=== PATIENT | female | born 1980 | race Caucasian/White ===

== ENCOUNTER 2022-07-02 00:02 | Inpatient (IN) | payer BC ==
[~2022-07-02] VITALS: Ht 172.7 cm; Wt 100.0 kg
[2022-07-02 00:42] LABS: BASOPHILS % (AUTO) 0.2 % (0-1); EOSINOPHILS % (AUTO) 0.1 % (0-6); HEMATOCRIT 44.8 % (35.0-45.0); HEMOGLOBIN 15.6 g/dl (12.0-16.0); LYMPHOCYTES # (AUTO) 1.2 X10'3 (1.1-4.8); LYMPHOCYTES % (AUTO) 7.4 % (21-51); MEAN CORPUSCULAR HEMOGLOBIN 33.2 PG (27.0-31.0); MEAN CORPUSCULAR HGB CONC 34.8 g/dL (33.0-36.5); MEAN CORPUSCULAR VOLUME 95.3 FL (78-98); MEAN PLATELET VOLUME 8.6 FL (7.4-10.4); MONOCYTES # (AUTO) 0.5 X10'3 (0-0.9); MONOCYTES % (AUTO) 2.8 % (2-12); NEUTROPHILS % (AUTO) 89.5 % (42-75); PLATELET COUNT 219 X10'3 (140-440); WHITE BLOOD COUNT 16.8 X10'3 (4.5-11.0)
[2022-07-02] MEDS ORDERED: normal saline 1000ML IV soln IV ONE (00:50)
[2022-07-02] MEDS ORDERED: ondansetron/PF 4mg/2ml inj IV ONE (00:50)
[2022-07-02] MEDS ORDERED: CefTRIAXone 2gm/D5W 50ml BAG 50 ML IV ONE (00:50)
[2022-07-02] MEDS ORDERED: morphine 4 MG/ML inj SYRINge IV ONE ×2 (00:50→01:45)
[2022-07-02 00:54] LABS: ALANINE AMINOTRANSFERASE 40 U/L (12-78); ALBUMIN 3.7 G/DL (3.4-5.0); ALKALINE PHOSPHATASE 125 IU/L (46-116); ANION GAP 13 (8-16); ASPARTATE AMINO TRANSFERASE 35 U/L (10-37); BILIRUBIN,TOTAL 1.2 MG/DL (0.1-1.0); BLOOD UREA NITROGEN 11 MG/DL (7-18); BUN/CREATININE RATIO 15.1 (10.0-20.0); CALCIUM 8.8 MG/DL (8.5-10.1); CHLORIDE 98 MMOL/L (99-107); CREATININE 0.73 MG/DL (0.40-0.90); GLUCOSE 136 MG/DL (70-104); POTASSIUM 3.1 MMOL/L (3.5-5.1); SODIUM 136 MMOL/L (135-145); TOTAL CARBON DIOXIDE 24.9 MMOL/L (24-32); TOTAL PROTEIN 7.5 G/DL (6.4-8.2); eGFR 87 ML/MIN
[2022-07-02 01:10] LABS: LIPASE 3046 U/L (73-393)
--- NOTE | 2022-07-02 01:26 | NUR ---
Patient continues to vomit after getting Zofran, Per Dr. Blackwood given Reglan 10mg IV now.
[2022-07-02] MEDS ORDERED: metoclopramide 5 mg/ml inj IV ONE (01:30)
[2022-07-02] MEDS ORDERED: diphenhydrAMINE 50 mg/ml inj IV ONE (01:45)
[2022-07-02] MEDS ORDERED: normal saline 1000ml 1,000 ML IV ONE (01:45)
[2022-07-02] MEDS ORDERED: fentaNYL/PF 50MCG/1 ML 2ML syringe IV ONE (02:30)
[2022-07-02] MEDS ORDERED: morphine 2 MG/ML inj. syringe IV PRN (03:00)
[2022-07-02] MEDS ORDERED: magnesium 4gm in 100ml NS 100 ML IV PRN (03:00)
[2022-07-02] MEDS ORDERED: ondansetron 4mg rapidly disintigrating tab PO PRN (03:00)
[2022-07-02] MEDS ORDERED: mag hydrox/Alum hydrox/simeth 30ml oral suspension PO PRN (03:00)
[2022-07-02] MEDS ORDERED: diphenhydrAMINE 25mg capsule PO PRN (03:00)
[2022-07-02] MEDS ORDERED: diphenhydrAMINE 50 mg/ml inj IV PRN (03:00)
[2022-07-02] MEDS ORDERED: potassium Cl 20 mEq SR tablet PO PRN (03:00)
[2022-07-02] MEDS ORDERED: metoclopramide 5 mg/ml inj IV PRN (03:00)
[2022-07-02] MEDS ORDERED: magnesium hydroxide 30ml (MOM) UD suspension PO PRN (03:00)
[2022-07-02] MEDS ORDERED: ondansetron/PF 4mg/2ml inj IV PRN (03:00)
[2022-07-02] MEDS ORDERED: acetaminophen 650mg rectal suppository RC PRN (03:00)
[2022-07-02] MEDS ORDERED: magnesium Cl slow-release 64mg tablet PO PRN (03:00)
[2022-07-02] MEDS ORDERED: acetaminophen 325mg tablet PO PRN ×2 (03:00)
[2022-07-02] MEDS ORDERED: potassium Cl 40MEQ/1/2NS 520ml 520 ML IV PRN (03:00)
[2022-07-02] MEDS ORDERED: bisacodyl 10mg suppository rectal RC PRN (03:00)
[2022-07-02] MEDS ORDERED: HYDROcodone/acetaminophen 5mg/325mg tablet PO PRN (03:00)
[2022-07-02] MEDS ORDERED: HYDROmorphone inj. 0.5 MG/0.5 ML DISP.SYRIN IV PRN (03:00)
[2022-07-02] MEDS ORDERED: magnesium 2GM in 50ml NS 50 ML IV PRN (03:00)
[2022-07-02] MEDS ORDERED: HYDROcodone/acetaminophen 10/325mg tab PO PRN (03:00)
[2022-07-02] MEDS ORDERED: HYDROmorphone 1 mg/ml syringe IV ONE (03:30)
[2022-07-02 03:32] LABS: HEMOGLOBIN A1C 5.7 % (4.5-6.2)
[2022-07-02] MEDS: hydrALAZINE 20mg/ml inj. IV SCH ×4 (03:37→20:18)
[2022-07-02] MEDS: potassium Cl 20mEq in NS 1,000 ML IV SCH ×2 (03:40→14:02)
[2022-07-02 03:45] LABS: CREATINE KINASE 40 U/L (26-192); MAGNESIUM 1.4 MG/DL (1.5-2.4); PHOSPHORUS 3.8 MG/DL (2.3-4.5)
[2022-07-02] MEDS ORDERED: PHEN-887 PO (03:51)
[2022-07-02] MEDS ORDERED: NITR100C11 PO (03:51)
[2022-07-02] MEDS ORDERED: magnesium 2GM in 50ml NS 50 ML IV ONE (04:15)
[2022-07-02] MEDS ORDERED: potassium Cl 40MEQ/1/2NS 520ml 520 ML IV ONE ×4 (04:15→18:30)
[2022-07-02 05:13] LABS: URINE HCG NEGATIVE (NEG)
[2022-07-02 05:17] LABS: CLARITY,URINE CLEAR (Clear); COLOR,URINE ORANGE (Yellow)
[2022-07-02 05:32] LABS: UA COLLECTION TYPE VOIDED
[2022-07-02 05:34] LABS: URINE AMPHETAMINE SCREEN NEGATIVE (Neg); URINE BARBITUATE SCREEN NEGATIVE (Neg); URINE BENZODIAZEPINES SCREEN NEGATIVE (Neg); URINE CANNABINOID SCREEN NEGATIVE (Neg); URINE COCAINE SCREEN NEGATIVE (Neg); URINE METHADONE SCREEN NEGATIVE (Neg); URINE OPIATE SCREEN POSITIVE (Neg); URINE PHENCYCLIDINE SCREEN NEGATIVE (Neg)
[2022-07-02 05:36] LABS: BACTERIA,URINE FEW /HPF (Neg); MUCUS STRANDS NONE SEEN /LPF (Neg); RBC,URINE NONE SEEN /HPF (0-2); SQUAMOUS EPITHELIAL CELL,UR FEW /LPF (FEW); WBC CLUMPS,URINE FEW /HPF (NEGATIVE); WBC,URINE 30-50 /HPF (0-4)
[2022-07-02 05:49] VITALS: BP 175/90
[2022-07-02] MEDS: morphine 2 MG/ML inj. syringe IV PRN ×3 (05:58→10:40)
[2022-07-02 06:00] VITALS: BP 148/78
--- NOTE | 2022-07-02 07:15 | NUR ---
Patient in room PCU 3020. I have received report from MARISELA Lester and had the opportunity to ask questions and assume patient care.
[2022-07-02 07:21] LABS: POTASSIUM 2.9 MMOL/L (3.5-5.1)
--- NOTE | 2022-07-02 07:21 | NUR ---
CRITICAL LAB VALUE TAKEN FROM LAB, REPORTED TO PRIMARY DERMATOLOGY SALES REPRESENTATIVE.
--- NOTE | 2022-07-02 07:29 | NUR ---
PAGER ID: [phone] MESSAGE: Eb Brown [id number]. K 2.9. Replacement already ordered. Thank you, Shima [id number]
[2022-07-02] MEDS ORDERED: ESCI5TAB PO (07:34)
[2022-07-02 07:39] LABS: APTT 27 SECONDS (22-32)
[2022-07-02] MEDS: pantoprazole 40MG/NS 100ML BAG 100 ML IV SCH (07:56)
[2022-07-02] MEDS ORDERED: docusate sod 100mg capsule PO SCH (08:00)
[2022-07-02] MEDS: K and/or MAG REPLACEMENT MC SCH ×2 (08:31→20:00)
[2022-07-02] MEDS: heparin, porcine 5000 units/ml vial SQ SCH ×2 (08:47→20:21)
[2022-07-02 10:00] VITALS: BP_SYST 153; BP_SYST 168; BP_DIAS 92; BP_DIAS 94
[2022-07-02] MEDS ORDERED: morphine 2 MG/ML inj. syringe IV ONE (12:00)
--- NOTE | 2022-07-02 13:03 | NUR ---
PAGER ID: [phone] MESSAGE: Eb Brown [id number]. Patient still reporting 10/10 pain and requesting Dilaudid. Patient also stating she is starting to withdrawl from alcohol and requesting something for anxiety. Please advise, Thank you, Shima [id number].
[2022-07-02] MEDS ORDERED: HYDROmorphone 2mg tablet PO PRN (13:10)
[2022-07-02] MEDS ORDERED: haloperidol lactate 5mg/ml inj IM PRN (13:15)
[2022-07-02 14:00] VITALS: BP 167/89
[2022-07-02] MEDS: HYDROmorphone 1 mg/ml syringe IV PRN ×2 (14:02→20:13)
[2022-07-02 15:08] LABS: BASOPHILS % (AUTO) 0.2 % (0-1); EOSINOPHILS % (AUTO) 0 % (0-6); HEMATOCRIT 41.7 % (35.0-45.0); HEMOGLOBIN 14.4 g/dl (12.0-16.0); LYMPHOCYTES # (AUTO) 0.8 X10'3 (1.1-4.8); LYMPHOCYTES % (AUTO) 4.9 % (21-51); MEAN CORPUSCULAR HEMOGLOBIN 33.1 PG (27.0-31.0); MEAN CORPUSCULAR HGB CONC 34.5 g/dL (33.0-36.5); MEAN PLATELET VOLUME 8.4 FL (7.4-10.4); MONOCYTES # (AUTO) 0.6 X10'3 (0-0.9); MONOCYTES % (AUTO) 3.5 % (2-12); NEUTROPHILS # (AUTO) 15.5 X10'3 (1.8-7.7); NEUTROPHILS % (AUTO) 91.4 % (42-75); PLATELET COUNT 206 X10'3 (140-440); RED BLOOD COUNT 4.34 X10'6 (4.20-5.60); RED CELL DISTRIBUTION WIDTH 14.4 % (11.5-14.5)
--- NOTE | 2022-07-02 15:20 | NUR ---
Met with patient in regards to alcohol use and to see if patient was interested in resources for treatment options. Patient is interested in resources. Patient would like to start medication to help with cravings. I gave patient a card for [facility] and my card to call me with any questions.
[2022-07-02 15:28] LABS: ALANINE AMINOTRANSFERASE 33 U/L (12-78); ALBUMIN 3.3 G/DL (3.4-5.0); ALBUMIN/GLOBULIN RATIO 0.9 (1.1-1.5); ALKALINE PHOSPHATASE 107 IU/L (46-116); ANION GAP 14 (8-16); ASPARTATE AMINO TRANSFERASE 26 U/L (10-37); BILIRUBIN,TOTAL 0.8 MG/DL (0.1-1.0); BLOOD UREA NITROGEN 11 MG/DL (7-18); BUN/CREATININE RATIO 16.2 (10.0-20.0); CALCIUM 8.3 MG/DL (8.5-10.1); CHLORIDE 100 MMOL/L (99-107); CREATININE 0.68 MG/DL (0.40-0.90); GLUCOSE 133 MG/DL (70-104); POTASSIUM 3.4 MMOL/L (3.5-5.1); SODIUM 137 MMOL/L (135-145); TOTAL CARBON DIOXIDE 22.9 MMOL/L (24-32); TOTAL PROTEIN 6.8 G/DL (6.4-8.2); eGFR > 90 ML/MIN
[2022-07-02] MEDS: LORazepam 2 mg/ml vial IV PRN ×2 (15:59→20:16)
--- NOTE | 2022-07-02 17:27 | NUR ---
I agree with WARP PREPARER assessment except noted changes.
[2022-07-02 18:00] VITALS: BP 159/86
--- NOTE | 2022-07-02 18:11 | NUR ---
Problems reprioritized. Patient report given, questions answered & plan of care reviewed with MARISELA Lester.
[2022-07-02] MEDS: atenolol 25mg tablet PO SCH (19:15)
[2022-07-02] MEDS: lisinopril 5mg tablet PO SCH (19:15)
[2022-07-02] MEDS: thiamine 100mg/ml 2ml inj. IV SCH (20:33)
[2022-07-02] MEDS ORDERED: temazepam 15mg capsule PO PRN (21:00)
[2022-07-02 21:11] VITALS: BP 148/82
[2022-07-03] MEDS: LORazepam 2 mg/ml vial IV PRN ×3 (00:06→14:59)
[2022-07-03] MEDS: HYDROmorphone 1 mg/ml syringe IV PRN ×2 (00:07→07:47)
[2022-07-03 02:00] VITALS: BP 136/88
[2022-07-03] MEDS: potassium Cl 20mEq in NS 1,000 ML IV SCH ×4 (02:00→19:24)
[2022-07-03] MEDS: hydrALAZINE 20mg/ml inj. IV SCH ×4 (02:25→20:38)
[2022-07-03 06:00] VITALS: BP 153/91
--- NOTE | 2022-07-03 07:05 | NUR ---
Patient in room PCU 3020. I have received report from NADINE ANTONIO and had the opportunity to ask questions and assume patient care.
[2022-07-03 07:34] LABS: BASOPHILS % (AUTO) 0.3 % (0-1); EOSINOPHILS % (AUTO) 0.1 % (0-6); HEMATOCRIT 39.6 % (35.0-45.0); HEMOGLOBIN 13.3 g/dl (12.0-16.0); LYMPHOCYTES # (AUTO) 0.8 X10'3 (1.1-4.8); LYMPHOCYTES % (AUTO) 4.3 % (21-51); MEAN CORPUSCULAR HEMOGLOBIN 32.7 PG (27.0-31.0); MEAN CORPUSCULAR HGB CONC 33.7 g/dL (33.0-36.5); MEAN CORPUSCULAR VOLUME 97.1 FL (78-98); MEAN PLATELET VOLUME 8.8 FL (7.4-10.4); MONOCYTES # (AUTO) 0.7 X10'3 (0-0.9); MONOCYTES % (AUTO) 4.1 % (2-12); NEUTROPHILS # (AUTO) 16.5 X10'3 (1.8-7.7); NEUTROPHILS % (AUTO) 91.2 % (42-75); PLATELET COUNT 199 X10'3 (140-440); RED BLOOD COUNT 4.08 X10'6 (4.20-5.60); RED CELL DISTRIBUTION WIDTH 14.4 % (11.5-14.5); WHITE BLOOD COUNT 18.1 X10'3 (4.5-11.0)
[2022-07-03] MEDS: folic acid 1mg/0.2ml inj IV SCH (07:45)
[2022-07-03] MEDS: thiamine 100mg/ml 2ml inj. IV SCH ×3 (07:46→20:38)
[2022-07-03] MEDS: pantoprazole 40MG/NS 100ML BAG 100 ML IV SCH (07:47)
[2022-07-03] MEDS: lisinopril 5mg tablet PO SCH (07:47)
[2022-07-03 07:48] LABS: ALANINE AMINOTRANSFERASE 27 U/L (12-78); ALBUMIN 2.9 G/DL (3.4-5.0); ALBUMIN/GLOBULIN RATIO 0.9 (1.1-1.5); ALKALINE PHOSPHATASE 99 IU/L (46-116); ANION GAP 12 (8-16); ASPARTATE AMINO TRANSFERASE 30 U/L (10-37); BILIRUBIN,TOTAL 0.9 MG/DL (0.1-1.0); BLOOD UREA NITROGEN 6 MG/DL (7-18); BUN/CREATININE RATIO 11.8 (10.0-20.0); CALCIUM 8.5 MG/DL (8.5-10.1); CHLORIDE 98 MMOL/L (99-107); CHOL/HDL RATIO 2.1 (0.00-4.99); CHOLESTEROL 172 MG/DL (0-200); CREATININE 0.51 MG/DL (0.40-0.90); GLUCOSE 137 MG/DL (70-104); HDL CHOLESTEROL 81 MG/DL (35-60); LDL CHOLESTEROL 66 MG/DL (50-100); MAGNESIUM 1.8 MG/DL (1.5-2.4); PHOSPHORUS 1.9 MG/DL (2.3-4.5); POTASSIUM 3.5 MMOL/L (3.5-5.1); SODIUM 132 MMOL/L (135-145); TOTAL CARBON DIOXIDE 22.3 MMOL/L (24-32); TOTAL PROTEIN 6.2 G/DL (6.4-8.2); eGFR > 90 ML/MIN
[2022-07-03] MEDS: atenolol 25mg tablet PO SCH (07:48)
[2022-07-03 07:49] LABS: LIPASE 513 U/L (73-393); TRIGLYCERIDES 88 MG/DL (20-135)
[2022-07-03] MEDS: heparin, porcine 5000 units/ml vial SQ SCH ×2 (07:49→20:38)
[2022-07-03] MEDS: K and/or MAG REPLACEMENT MC SCH ×2 (08:00→20:00)
[2022-07-03] MEDS: CefTRIAXone 2gm/D5W 50ml BAG 50 ML IV SCH (08:49)
[2022-07-03 11:00] VITALS: BP 145/85
--- NOTE | 2022-07-03 15:12 | NUR ---
ELEVATED B/P 188/102. medicated with hydralazine, now 166/99. Ativan also given for withdrawal will continue to monitor
[2022-07-03 18:00] VITALS: BP 165/82
--- NOTE | 2022-07-03 18:41 | NUR ---
patient appears comfortable not requiring pain meds sice ativan effective. Report given to venice ANTONIO
--- NOTE | 2022-07-03 20:10 | NUR ---
sent page to dr. waite for oral ativan and pain medication. orders received.
[2022-07-03] MEDS ORDERED: HYDROcodone/acetaminophen 5mg/325mg tablet PO PRN (20:15)
[2022-07-03] MEDS: LORazepam 1 MG tablet PO PRN (20:40)
[2022-07-03 21:00] VITALS: BP 163/88
[2022-07-03] MEDS: HYDROcodone/acetaminophen 10/325mg tab PO PRN (21:03)
[2022-07-04] MEDS: potassium Cl 20mEq in NS 1,000 ML IV SCH ×3 (00:11→16:43)
[2022-07-04] MEDS: HYDROcodone/acetaminophen 10/325mg tab PO PRN ×5 (01:14→23:57)
[2022-07-04] MEDS: LORazepam 1 MG tablet PO PRN ×4 (01:15→23:57)
[2022-07-04] MEDS: hydrALAZINE 20mg/ml inj. IV SCH ×4 (01:19→19:36)
[2022-07-04 02:00] VITALS: BP 160/91
--- NOTE | 2022-07-04 06:28 | NUR ---
Patient in room PCU 3020. I have received report from cecile león and had the opportunity to ask questions and assume patient care.
--- NOTE | 2022-07-04 06:36 | NUR ---
reported to days. noted patient resting w/o distress. anticipate discharge home today.
[2022-07-04 07:12] VITALS: BP 147/78
[2022-07-04 07:18] LABS: BASOPHILS % (AUTO) 0.2 % (0-1); EOSINOPHILS # (AUTO) 0.1 X10'3 (0-0.9); EOSINOPHILS % (AUTO) 0.5 % (0-6); HEMATOCRIT 40.2 % (35.0-45.0); HEMOGLOBIN 13.6 g/dl (12.0-16.0); LYMPHOCYTES # (AUTO) 0.9 X10'3 (1.1-4.8); LYMPHOCYTES % (AUTO) 5.2 % (21-51); MEAN CORPUSCULAR HGB CONC 33.8 g/dL (33.0-36.5); MEAN CORPUSCULAR VOLUME 97.7 FL (78-98); MEAN PLATELET VOLUME 8.8 FL (7.4-10.4); MONOCYTES % (AUTO) 5.5 % (2-12); NEUTROPHILS # (AUTO) 15.5 X10'3 (1.8-7.7); NEUTROPHILS % (AUTO) 88.6 % (42-75); PLATELET COUNT 212 X10'3 (140-440); RED BLOOD COUNT 4.11 X10'6 (4.20-5.60); RED CELL DISTRIBUTION WIDTH 14.5 % (11.5-14.5); WHITE BLOOD COUNT 17.5 X10'3 (4.5-11.0)
[2022-07-04 07:22] LABS: ALANINE AMINOTRANSFERASE 26 U/L (12-78); ALBUMIN 2.5 G/DL (3.4-5.0); ALBUMIN/GLOBULIN RATIO 0.7 (1.1-1.5); ALKALINE PHOSPHATASE 111 IU/L (46-116); ANION GAP 10 (8-16); ASPARTATE AMINO TRANSFERASE 31 U/L (10-37); BILIRUBIN,TOTAL 0.6 MG/DL (0.1-1.0); BLOOD UREA NITROGEN 6 MG/DL (7-18); BUN/CREATININE RATIO 12.2 (10.0-20.0); CALCIUM 8.6 MG/DL (8.5-10.1); CHLORIDE 99 MMOL/L (99-107); CREATININE 0.49 MG/DL (0.40-0.90); GLUCOSE 147 MG/DL (70-104); LIPASE 206 U/L (73-393); PHOSPHORUS 1.9 MG/DL (2.3-4.5); POTASSIUM 3.3 MMOL/L (3.5-5.1); SODIUM 132 MMOL/L (135-145); TOTAL CARBON DIOXIDE 23.3 MMOL/L (24-32); eGFR > 90 ML/MIN
[2022-07-04] MEDS: potassium Cl 20 mEq SR tablet PO PRN ×2 (07:43→15:29)
[2022-07-04] MEDS: folic acid 1mg/0.2ml inj IV SCH (07:43)
[2022-07-04] MEDS: atenolol 25mg tablet PO SCH (07:43)
[2022-07-04] MEDS: lisinopril 5mg tablet PO SCH (07:43)
[2022-07-04] MEDS: thiamine 100mg/ml 2ml inj. IV SCH ×3 (07:43→19:33)
[2022-07-04] MEDS: pantoprazole 40MG/NS 100ML BAG 100 ML IV SCH (07:44)
[2022-07-04] MEDS: heparin, porcine 5000 units/ml vial SQ SCH ×2 (07:44→19:31)
[2022-07-04] MEDS: K and/or MAG REPLACEMENT MC SCH ×2 (07:44→20:00)
[2022-07-04] MEDS: CefTRIAXone 2gm/D5W 50ml BAG 50 ML IV SCH (08:40)
[2022-07-04 11:27] VITALS: BP 150/79
--- NOTE | 2022-07-04 13:48 | NUR ---
paged dr henriquez re: Message: rose davis. can we dc order for cdiff sample? pt has not had bm since 07/01. thanks [employer] Transaction number: [id number]
[2022-07-04 15:22] VITALS: BP 155/89
--- NOTE | 2022-07-04 18:27 | NUR ---
Problems reprioritized. Patient report given, questions answered & plan of care reviewed with VIVIANA ANTONIO.
--- NOTE | 2022-07-04 18:32 | NUR ---
Patient in room PCU 3017. I have received report from Karen ANTONIO and had the opportunity to ask questions and assume patient care.
[2022-07-04 19:00] VITALS: BP 154/93
[2022-07-04 20:23] LABS: OCCULT BLOOD STOOL NEGATIVE (Neg)
[2022-07-04] MEDS ORDERED: Melatonin 3mg tablet PO SCH (22:10)
[2022-07-04 23:00] VITALS: BP 162/107
[2022-07-05] MEDS: potassium Cl 20mEq in NS 1,000 ML IV SCH ×2 (01:13→09:09)
[2022-07-05] MEDS: hydrALAZINE 20mg/ml inj. IV SCH ×2 (01:16→07:17)
[2022-07-05 03:29] VITALS: BP 145/82
--- NOTE | 2022-07-05 06:12 | NUR ---
Patient in room PCU 3020. I have received report from marco león and had the opportunity to ask questions and assume patient care.
--- NOTE | 2022-07-05 06:23 | NUR ---
Problems reprioritized. Patient report given, questions answered & plan of care reviewed with Karen ANTONIO.Patient stable at shift change.
[2022-07-05 06:55] VITALS: BP 142/79
[2022-07-05] MEDS: lisinopril 5mg tablet PO SCH (07:15)
[2022-07-05] MEDS: pantoprazole 40MG/NS 100ML BAG 100 ML IV SCH (07:15)
[2022-07-05] MEDS: atenolol 25mg tablet PO SCH (07:15)
[2022-07-05] MEDS: thiamine 100mg/ml 2ml inj. IV SCH (07:16)
[2022-07-05] MEDS: folic acid 1mg/0.2ml inj IV SCH (07:17)
[2022-07-05] MEDS: heparin, porcine 5000 units/ml vial SQ SCH (07:17)
[2022-07-05] MEDS: HYDROcodone/acetaminophen 10/325mg tab PO PRN (07:18)
[2022-07-05 07:48] LABS: BASOPHILS % (AUTO) 0.3 % (0-1); EOSINOPHILS # (AUTO) 0.2 X10'3 (0-0.9); EOSINOPHILS % (AUTO) 1.6 % (0-6); HEMATOCRIT 38.8 % (35.0-45.0); HEMOGLOBIN 12.8 g/dl (12.0-16.0); LYMPHOCYTES % (AUTO) 8.1 % (21-51); MEAN CORPUSCULAR HEMOGLOBIN 32.6 PG (27.0-31.0); MEAN CORPUSCULAR HGB CONC 32.9 g/dL (33.0-36.5); MEAN PLATELET VOLUME 8.4 FL (7.4-10.4); MONOCYTES % (AUTO) 7.6 % (2-12); NEUTROPHILS # (AUTO) 10.4 X10'3 (1.8-7.7); NEUTROPHILS % (AUTO) 82.4 % (42-75); PLATELET COUNT 258 X10'3 (140-440); RED BLOOD COUNT 3.92 X10'6 (4.20-5.60); RED CELL DISTRIBUTION WIDTH 14.5 % (11.5-14.5); WHITE BLOOD COUNT 12.6 X10'3 (4.5-11.0)
[2022-07-05] MEDS: K and/or MAG REPLACEMENT MC SCH (08:00)
[2022-07-05 08:11] LABS: ALANINE AMINOTRANSFERASE 30 U/L (12-78); ALBUMIN 2.3 G/DL (3.4-5.0); ALBUMIN/GLOBULIN RATIO 0.7 (1.1-1.5); ALKALINE PHOSPHATASE 124 IU/L (46-116); ANION GAP 8 (8-16); ASPARTATE AMINO TRANSFERASE 35 U/L (10-37); BILIRUBIN,TOTAL 0.5 MG/DL (0.1-1.0); BLOOD UREA NITROGEN 3 MG/DL (7-18); CALCIUM 8.4 MG/DL (8.5-10.1); CHLORIDE 101 MMOL/L (99-107); GLUCOSE 144 MG/DL (70-104); LIPASE 193 U/L (73-393); POTASSIUM 3.5 MMOL/L (3.5-5.1); SODIUM 135 MMOL/L (135-145); TOTAL CARBON DIOXIDE 26.3 MMOL/L (24-32); TOTAL PROTEIN 5.8 G/DL (6.4-8.2); eGFR > 90 ML/MIN
[2022-07-05] MEDS: CefTRIAXone 2gm/D5W 50ml BAG 50 ML IV SCH (09:09)
[2022-07-05 09:10] LABS: C DIFF SPECIMEN=DIARRHEA? ACCEPTABLE; C DIFFICILE TOXINS A&B NEGATIVE (Neg)
[2022-07-05] MEDS: HYDROmorphone 1 mg/ml syringe IV PRN (09:54)
[2022-07-05 11:08] VITALS: BP 150/89
[2022-07-05] MEDS ORDERED: FOLI1TAB27 PO (12:15)
[2022-07-05] MEDS ORDERED: LISI5TAB22 PO (12:15)
[2022-07-05] MEDS ORDERED: LACT1CAP55 PO (12:15)
[2022-07-05] MEDS ORDERED: AMLO5TAB16 PO (12:15)
[2022-07-05] MEDS ORDERED: PROP10TA10 PO (12:15)
[2022-07-05] MEDS ORDERED: THIA50TA10 PO (12:15)
[2022-07-05] MEDS ORDERED: CEFD300C3 PO (12:18)
[2022-07-05] MEDS ORDERED: MULT-1085 PO (12:18)
[2022-07-05] MEDS ORDERED: CHLO25CA10 PO (12:21)
--- NOTE | 2022-07-05 14:00 | NUR ---
PT DISCHARGED IN STABLE CONDITION. LEFT 3RD FLOOR TO VISIT MOTHER ON 2ND FLOOR. IV DC CANULA INTACT. FOLLOW UP INSTRUCTIONS GIVEN, ALL QUESTIONS ANSWERED. ALL BELONGINGS IN HAND. Addendum: 07/05/22 at 1401 by Ninoska Durand RN Amended: Links added.
[2022-07-06] MEDS ORDERED: pantoprazole 40mg Tablet.DR PO SCH (07:30)
== END 2022-07-05 14:00 | disposition home or self-care (01) | DRG 439 ==
LOC: ER 00:03 → ED HOLD 03:11 → PCU 3S 05:30
PROVIDERS: ADMIT Family Medicine; ATTEND Internal Medicine
PROC: BW211ZZ Computerized Tomography (CT Scan) of Abdomen and Pelvis using Low Osmolar Contrast (ICD-10-PCS; principal; 2022-07-02)
DX: K85.20 Alcohol induced acute pancreatitis without necrosis or infection (principal); E87.1 Hypo-osmolality and hyponatremia; N39.0 Urinary tract infection, site not specified; E83.42 Hypomagnesemia; M54.50 Low back pain, unspecified; E66.9 Obesity, unspecified; E05.80 Other thyrotoxicosis without thyrotoxic crisis or storm; E87.6 Hypokalemia; F10.10 Alcohol abuse, uncomplicated; I10 Essential (primary) hypertension; K52.9 Noninfective gastroenteritis and colitis, unspecified; Z86.32 Personal history of gestational diabetes; Z87.440 Personal history of urinary (tract) infections; Z68.33 Body mass index [BMI] 33.0-33.9, adult; Z71.41 Alcohol abuse counseling and surveillance of alcoholic
CPT/HCPCS: 36415; 71045; 74177; 80053; 80061; 80305; 81001; 81025; 82272; 82550; 83036; 83605; 83690; 83735; 83880; 84100; 84132; 84145; 84439; 84443; 84480; 85025; 85610; 85730; 87040; 87045; 87046; 87081; 87088; 87324; 87449; 89055; 96361; 96365; 96376; 99285; C9113; G0378; J0360; J0696; J1170; J1200; J1644; J2060; J2270; J2405; J2765; J3010; J3411; J3475; J3480; J3490; J7030; J7040